=== PATIENT | male | born 1940 | race Caucasian/White ===

== ENCOUNTER 2019-10-28 12:45 | Outpatient (RCR) | payer OTHER, SELFPAY ==
--- NOTE | 2019-10-07 16:28 | PT.OIE ---
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) Visit Care Team Role Provider Type Joel Gonzalez MD Family Provider Non-Staff Primary Care Provider Specialty: Family Practice Address: [address] [place] [address], [id number] Email: Rios Stein PA-C Attending Provider Non-Staff Referring Provider Specialty: Medical Address: [address] [place] [address], [id number] Email: Physical Therapy Initial Evaluation PT-OP-A Visit Information Start: 10/03/19 19:55 Freq: Status: Active Protocol: Document 10/07/19 14:32 LRN (Rec: 10/07/19 16:26 LRN [id number]) Out-Patient Physical Therapy Visit Information Visit Information Visit Type Initial Evaluation Visit Start Time 14:32 Visit Stop Time 15:28 Total Visit Minutes 56 Visit Number 1 Evaluation Information Evaluation Date 10/07/19 Precautions Precautions Cervical fusion C1-C3 - 10-15 yrs ago. Depression. PTSD Controlled HBP PT-OP-B Current Condition Start: 10/03/19 19:55 Freq: Status: Active Protocol: Document 10/07/19 14:32 LRN (Rec: 10/07/19 16:26 LRN [id number]) Current Condition History of Current Condition Onset Date 3 weeks ago Current Complaints Tingling into R shoulder/arm, mostly in hand, intermittent, pain R head/neck History of Current Condition Urgent care 3 weeks, due to increasing pain in R neck/head and pt was concerned something was wrong. A few days afterwards went again to urgent care due to ongoing R shoulder/neck pain and got new medications that proved to be helpful. States he uses 2 codene or Meloxicam daily. States X- rays taken in [place] recently showed cushion has worn out and C3-C4 were grinding on each other; therefore referred to physical therapy. He states Dr. Gonzalez insisted on PT before doing anything else. Prior Treatments and Tests X-rays Urgent care [facility]. Pt states it showed grinding of C3-C4. Has used ice to neck with moderate results. Developmental History Developmental History 10-15 yrs ago had neck surgery in [place], because had trouble using the R hand. 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 Treatment Goals Patient/Caregiver Goals Has not had good results with PT in the past. Pt goal is for PT to find a way to alleviate the pain enough to get off medications, improve sleeping, return to heavy yardwork with pain only once in awhile (mowing lawn, cutting and hauling brush & cutting wood), vacuum without pain. 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 Baseline Function- Other Able to sleep with use of SEROquel (100 mg QUEtiapine) Current Functional Impairments (Reported) Functional Limitations- ADL's Difficulty sitting and concentrating. Rolling in bed causes electrical shocks down R arm and neck without medications to manage the pain. Functional Limitations- Mobility/Gait Pt reports serious balance problem. Functional Limitations- Recreation/ Not able to do yardwork. 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-C Subjective Start: 10/03/19 19:55 Freq: Status: Active Protocol: Document 10/07/19 14:32 LRN (Rec: 10/07/19 16:26 LRN [id number]) Patient Questionnaires Neck Disability Index NDI Score 20 Neck Disability Index Impairment 40 to 59% Impaired (Score 20- 29) Quick Dash- Upper Extremity Quick Dash UE Score 36.36 Quick Dash UE Impairment 20 to 39% Impaired (Score 20- 39) OP-PT Pain Assessment Location 8 Pain Location Details R side of neck Intensity 4 Scale Used Numeric (0 - 10) Description Aching,Dull,Sharp Frequency Constant Pain Aggravating Factors Changing Position Pain Alleviating Factors Cold Other Pain Alleviating Factors Medication Patient Stated Pain Goal Stop narcotics Comments Pain Comments Pain ranges 3-8/10. Currently pain is 4/10. PT-OP-H Neuro Start: 10/03/19 19:55 Freq: Status: Active Protocol: Document 10/07/19 14:32 LRN (Rec: 10/07/19 16:26 LRN [id number]) Sensation Evaluation Comments Summary Comments Sensation is normal to soft touch except in the R hand index finger of entirety. Pt had not complaints of tingling pain today on initial evaluation. Deep Tendon Reflex & Clonus Assessment Deep Tendon Reflex Bilateral Tricep Deep Tendon Reflex 1+ Diminished Bilateral Brachioradialis Deep Tendon Reflex 1+ Diminished Bilateral Bicep Deep Tendon Reflex 1+ Diminished PT-OP-J Posture/Palpation/Skin Start: 10/03/19 19:55 Freq: Status: Active Protocol: Document 10/07/19 14:32 LRN (Rec: 10/07/19 16:26 LRN [id number]) Posture Evaluation Position Standing Evaluation View All positions Head/C-Spine Posture Rotated Left,Side Bent Left, Forward Head T-Spine Posture Flattened L-Spine Posture Flattened Shoulder Posture (R) Elevated Pelvis Posture (L) Rotated Posterior,(R) Rotated Posterior PT-OP-K Range of Motion Start: 10/03/19 19:55 Freq: Status: Active Protocol: Document 10/07/19 14:32 LRN (Rec: 10/07/19 16:26 LRN [id number]) Cervical Spine Range of Motion Cervical Spine Active Degrees Testing Position Sitting Flexion 60 Extension 50 Rotation Left 45 Rotation Right 30 Lateral Flexion Left 15 Lateral Flexion Right 15 ROM Limitations Soft Tissue Tightness,Pain Shoulder Goniometric Range of Motion Shoulder Right Active Testing Position Supine Flexion 145 Abduction 155 Left Active Testing Position Supine Flexion 145 Abduction 142 PT-OP-L Special Tests Start: 10/03/19 19:55 Freq: Status: Active Protocol: Document 10/07/19 14:32 LRN (Rec: 10/07/19 16:26 LRN [id number]) Special Tests Cervical Spine Special Tests Vertebral Artery Test Results negative bilaterally Traction Test Results negative Foraminal Compression Test Results negative PT-OP-M Strength Start: 10/03/19 19:55 Freq: Status: Active Protocol: Document 10/07/19 14:32 LRN (Rec: 10/07/19 16:26 LRN [id number]) Cervical Spine Strength Cervical Spine Manual Muscle Testing Testing Position Sitting Reason Not Measured WFL Comments No increase in pain. Shoulder Strength Shoulder Manual Muscle Testing Right Reason Not Measured WFL Comments No R shoulder/neck pain complaints. Left Reason Not Measured WFL PT-OP-Q Treatments Start: 10/03/19 19:55 Freq: Status: Active Protocol: Document 10/07/19 14:32 LRN (Rec: 10/07/19 16:26 LRN [id number]) Therapeutic Exercises Supine Exercises C. Rotation Supine Exercise Name Passive and active Cervical rotation. Side bilateral Reps/Minutes 4 Self-Care/Home Management Treatment Education Patient Education Home Exercise Program,Posture Other Education Educated pt in proper sitting posture and discussed proper alignment. Physical cuing training was needed and verbal cuing needed during exercises . Activities Self-Care/Home Management Activities I/S and educated pt in self care ex of active C. rotation with awareness of proper sitting posture and proper head movement. I/S pt in proper posturing while reading to avoid slouching and head down posturing. PT-OP-T Assessment and Plan Start: 10/03/19 19:55 Freq: Status: Active Protocol: Document 10/07/19 14:32 LRN (Rec: 10/07/19 16:26 LRN [id number]) Physical Therapy Assessment Rehab Potential Rehabilitation Potential Good Evaluation Complexity Number of Personal Factors/Comorbidities 1-2 Number of Body Systems Impaired 4 or More Clinical Presentation at Evaluation Evolving Impairments Impairments Activity Tolerance,Pain, Posture,ROM,Soft Tissue Mobility Goals Pain Impairment Pain rated 3-8/10 in R neck/ head limiting function Short Term Goal (STG) Decrease pain with pt able to tolerate rolling in bed without interrupting sleep. STG Duration 11/04/19 Global Mobility Specialist Goal (LTG) Decrease pain to a tolerable level such that the pt will not need medications to manage his R neck/shoulder pain pain . LTG Duration 12/06/19 QuickDASH Impairment QuickDASH = 36.36 (29-39% impaired, score 20-39) Short Term Goal (STG) Pt will be able to vacuum without an increase in sharp R head/neck pain. Longterm Goal (LTG) Improve UE function per LEFS score of 19 or less (1-19% impairment). LTG Duration 12/06/19 NDI Impairment Decreased neck function per NDI 20 (40-59% impaired, score 20-29) Short Term Goal (STG) Decrease NDI to 15 or less. STG Duration 11/04/19 Global Mobility Specialist Goal (LTG) Decrease NDI to 9 or less. LTG Duration 12/06/19 HEP Impairment Pt lacks appropriate self senior living exercises. Global Mobility Specialist Goal (LTG) Pt will be independent with a self care HEP., LTG Duration 12/06/19 Assessment Summary Assessment Pt presents with notable postural deviations and mechanical dysfunction of the cervical spine. He doesn't demonstrate neurological involvement of the cervical spine at this time. He appears to have poor postural awareness of his head on his shoulders and should benefit from physical therapy for postural training; cervical and shoulder ROM, and strengthening of postural muscles. Physical Therapy Plan Frequency and Duration Frequency of Treatment 2x/Week Plan of Care Start Date 10/07/19 Plan of Care End Date 12/06/19 Therapeutic Interventions Therapeutic Interventions Home Exercise Program,Joint Mobilizations,Manual Therapy, Neuromuscular Re-education, Patient/Caregiver Education, Self-Care/Home Management,Soft Tissue Mobilization,Taping, Therapeutic Exercises Modalities Cold Pack/Ice Massage,Hot Packs Next Visit Focus/Plan Next Note Type Treatment Note
--- NOTE | 2019-10-07 16:39 | PT.OPPOC ---
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) Visit Care Team Role Provider Type Joel Gonzalez MD Family Provider Non-Staff Primary Care Provider Specialty: Family Practice Address: [address] [place] [address], [phone] Email: Rios Stein PA-C Attending Provider Non-Staff Referring Provider Specialty: Medical Address: [address] [place] [address], [id number] Email: Plan Of Care PT-OP-T Assessment and Plan Start: 10/03/19 19:55 Freq: Status: Active Protocol: Document 10/07/19 14:32 LRN (Rec: 10/07/19 16:26 LRN [id number]) Physical Therapy Assessment Rehab Potential Rehabilitation Potential Good Evaluation Complexity Number of Personal Factors/Comorbidities 1-2 Number of Body Systems Impaired 4 or More Clinical Presentation at Evaluation Evolving Impairments Impairments Activity Tolerance,Pain, Posture,ROM,Soft Tissue Mobility Goals Pain Impairment Pain rated 3-8/10 in R neck/ head limiting function Short Term Goal (STG) Decrease pain with pt able to tolerate rolling in bed without interrupting sleep. STG Duration 11/04/19 Nursing Home Goal (LTG) Decrease pain to a tolerable level such that the pt will not need medications to manage his R neck/shoulder pain pain . LTG Duration 12/06/19 QuickDASH Impairment QuickDASH = 36.36 (29-39% impaired, score 20-39) Short Term Goal (STG) Pt will be able to vacuum without an increase in sharp R head/neck pain. Pulmonary Function Technologist Goal (LTG) Improve UE function per LEFS score of 19 or less (1-19% impairment). LTG Duration 12/06/19 NDI Impairment Decreased neck function per NDI 20 (40-59% impaired, score 20-29) Short Term Goal (STG) Decrease NDI to 15 or less. STG Duration 11/04/19 Nursing Home Goal (LTG) Decrease NDI to 9 or less. LTG Duration 12/06/19 HEP Impairment Pt lacks appropriate self assisted exercises. Nursing Home Goal (LTG) Pt will be independent with a self care HEP., LTG Duration 12/06/19 Assessment Summary Assessment Pt presents with notable postural deviations and mechanical dysfunction of the cervical spine. He doesn't demonstrate neurological involvement of the cervical spine at this time. He appears to have poor postural awareness of his head on his shoulders and should benefit from physical therapy for postural training; cervical and shoulder ROM, and strengthening of postural muscles. Physical Therapy Plan Frequency and Duration Frequency of Treatment 2x/Week Plan of Care Start Date 10/07/19 Plan of Care End Date 12/06/19 Therapeutic Interventions Therapeutic Interventions Home Exercise Program,Joint Mobilizations,Manual Therapy, Neuromuscular Re-education, Patient/Caregiver Education, Self-Care/Home Management,Soft Tissue Mobilization,Taping, Therapeutic Exercises Modalities Cold Pack/Ice Massage,Hot Packs Next Visit Focus/Plan Next Note Type Treatment Note Plan of Care Dates Plan of Care Start Date 10/07/19 Plan of Care End Date 12/06/19 Electronically Signed by: Ely Marin, PT 10/07/19 5940 Please Sign and Return: I have reviewed this Plan of Care and certify that the skilled therapy services above are required to meet the patient?s needs. Physician Signature Date Printed Name and Credentials Clinical Instructor Signature Printed Name and Credentials
--- NOTE | 2019-10-08 16:34 | PT.OTN ---
Current Diagnoses Spondylosis without myelopathy or radiculopathy, cervical region (10/08/19) Physical Therapy Treatment Note PT-OP-A Visit Information Start: 10/03/19 19:55 Freq: Status: Active Protocol: Document 10/08/19 15:09 LRN (Rec: 10/08/19 16:27 LRN [id number]) Out-Patient Physical Therapy Visit Information Visit Information Visit Type Treatment Note Visit Start Time 15:09 Visit Stop Time 15:55 Total Visit Minutes 46 Visit Number 2 Evaluation Information Evaluation Date 10/07/19 Precautions Precautions Cervical fusion C1-C3 - 10-15 yrs ago. Depression. PTSD Controlled HBP PT-OP-B Current Condition Start: 10/03/19 19:55 Freq: Status: Active Protocol: Document 10/07/19 14:32 LRN (Rec: 10/07/19 16:26 LRN [id number]) Current Condition History of Current Condition Onset Date 3 weeks ago Current Complaints Tingling into R shoulder/arm, mostly in hand, intermittent, pain R head/neck History of Current Condition Urgent care 3 weeks, due to increasing pain in R neck/head and pt was concerned something was wrong. A few days afterwards went again to urgent care due to ongoing R shoulder/neck pain and got new medications that proved to be helpful. States he uses 2 codene or Meloxicam daily. States X- rays taken in [place] recently showed cushion has worn out and C3-C4 were grinding on each other; therefore referred to physical therapy. He states Dr. Gonzalez insisted on PT before doing anything else. Prior Treatments and Tests X-rays Urgent care [facility]. Pt states it showed grinding of C3-C4. Has used ice to neck with moderate results. Developmental History Developmental History 10-15 yrs ago had neck surgery in [place], because had trouble using the R hand. 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 Treatment Goals Patient/Caregiver Goals Has not had good results with PT in the past. Pt goal is for PT to find a way to alleviate the pain enough to get off medications, improve sleeping, return to heavy yardwork with pain only once in awhile (mowing lawn, cutting and hauling brush & cutting wood), vacuum without pain. 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 Baseline Function- Other Able to sleep with use of SEROquel (100 mg QUEtiapine) Current Functional Impairments (Reported) Functional Limitations- ADL's Difficulty sitting and concentrating. Rolling in bed causes electrical shocks down R arm and neck without medications to manage the pain. Functional Limitations- Mobility/Gait Pt reports serious balance problem. Functional Limitations- Recreation/ Not able to do yardwork. 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 Pt seen leaning over knees to read at start of therapy, pt reports he has been reading like that. PT-OP-H Neuro Start: 10/03/19 19:55 Freq: Status: Active Protocol: Document 10/07/19 14:32 LRN (Rec: 10/07/19 16:26 LRN [id number]) Sensation Evaluation Comments Summary Comments Sensation is normal to soft touch except in the R hand index finger of entirety. Pt had not complaints of tingling pain today on initial evaluation. Deep Tendon Reflex & Clonus Assessment Deep Tendon Reflex Bilateral Tricep Deep Tendon Reflex 1+ Diminished Bilateral Brachioradialis Deep Tendon Reflex 1+ Diminished Bilateral Bicep Deep Tendon Reflex 1+ Diminished PT-OP-J Posture/Palpation/Skin Start: 10/03/19 19:55 Freq: Status: Active Protocol: Document 10/07/19 14:32 LRN (Rec: 10/07/19 16:26 LRN [id number]) Posture Evaluation Position Standing Evaluation View All positions Head/C-Spine Posture Rotated Left,Side Bent Left, Forward Head T-Spine Posture Flattened L-Spine Posture Flattened Shoulder Posture (R) Elevated Pelvis Posture (L) Rotated Posterior,(R) Rotated Posterior PT-OP-K Range of Motion Start: 10/03/19 19:55 Freq: Status: Active Protocol: Document 10/08/19 15:09 LRN (Rec: 10/08/19 16:27 LRN [id number]) Shoulder Goniometric Range of Motion Shoulder Right Active Testing Position Supine External Rotation at 90 degrees 90 Abduction Internal Rotation 60 Left Active Testing Position Supine External Rotation at 90 degrees 90 Abduction Internal Rotation 70 PT-OP-L Special Tests Start: 10/03/19 19:55 Freq: Status: Active Protocol: Document 10/07/19 14:32 LRN (Rec: 10/07/19 16:26 LRN [id number]) Special Tests Cervical Spine Special Tests Vertebral Artery Test Results negative bilaterally Traction Test Results negative Foraminal Compression Test Results negative PT-OP-M Strength Start: 10/03/19 19:55 Freq: Status: Active Protocol: Document 10/07/19 14:32 LRN (Rec: 10/07/19 16:26 LRN [id number]) Cervical Spine Strength Cervical Spine Manual Muscle Testing Testing Position Sitting Reason Not Measured WFL Comments No increase in pain. Shoulder Strength Shoulder Manual Muscle Testing Right Reason Not Measured WFL Comments No R shoulder/neck pain complaints. Left Reason Not Measured WFL PT-OP-Q Treatments Start: 10/03/19 19:55 Freq: Status: Active Protocol: Document 10/08/19 15:09 LRN (Rec: 10/08/19 16:27 LRN [id number]) Therapeutic Exercises Supine Exercises Shoulder ROM Supine Exercise Name [place] Shoulder PROM flex, ER/IR Reps/Minutes 8' Comments ROM taken for ER/IR C. SB stretch Supine Exercise Name Passive stretch Side bilateral Reps/Minutes 8'' Deep C. Neck Flexor strengthening Supine Exercise Name Neck Elongation training Reps/Minutes 5' C. Rotation Supine Exercise Name Active C. Rotation stretching Side bilateral Reps/Minutes 8' Comments Extra time to train pt to do one side at time, not follows direction Standing Exercises L/S shift to left Standing Exercise Name L wall lean to pelvic shift left and correct L/S L tilt Side left Reps/Minutes 3' Postural awareness training Standing Exercise Name Standing with neck elongation Reps/Minutes 3' Manual Therapy Treatment Soft Tissue Mobilization C[place]orro UT Body Location [place] UT Mobilization Type Myofascial Release Intensity/Depth Moderate Body Position Supine Self-Care/Home Management Treatment Education Patient Education Home Exercise Program,Posture Other Education Discussed at length proper posturing and pt responsibility to become aware and make changes. Training to improve awareness of proper posture through verbal, physical and visual cuing ( demonstrating pt posture). Discussed effects of posture and body mechanics while carrying a 50# backpack and recommended the pt lessen the load. Activities Self-Care/Home Management Activities I/S pt in correction for a L lateral trunk shift with L wall lean for a R pelvic shift . I/S pt in active C. rotation stretch. I/S pt in improving posture of head on shoulders and recommended use of walking sticks for balance to avoid having head and hip flex posturing. I/S pt in neck elongation ex. PT-OP-R Modalities Start: 10/03/19 19:55 Freq: Status: Active Protocol: Document 10/08/19 15:09 LRN (Rec: 10/08/19 16:27 LRN [id number]) Hot Pack/Cold Pack Treatment Hot Pack Location Neck & back Patient Position Supine Treatment Duration (minutes) 10 Comments MH during neck exercises PT-OP-T Assessment and Plan Start: 10/03/19 19:55 Freq: Status: Active Protocol: Document 10/08/19 15:09 LRN (Rec: 10/08/19 16:27 LRN [id number]) Physical Therapy Assessment Goals Pain Impairment Pain rated 3-8/10 in R neck/ head limiting function Short Term Goal (STG) Decrease pain with pt able to tolerate rolling in bed without interrupting sleep. STG Duration 11/04/19 Acid Filler Goal (LTG) Decrease pain to a tolerable level such that the pt will not need medications to manage his R neck/shoulder pain pain . LTG Duration 12/06/19 QuickDASH Impairment QuickDASH = 36.36 (29-39% impaired, score 20-39) Short Term Goal (STG) Pt will be able to vacuum without an increase in sharp R head/neck pain. Fdc Goal (LTG) Improve UE function per LEFS score of 19 or less (1-19% impairment). LTG Duration 12/06/19 NDI Impairment Decreased neck function per NDI 20 (40-59% impaired, score 20-29) Short Term Goal (STG) Decrease NDI to 15 or less. STG Duration 11/04/19 Fdc Goal (LTG) Decrease NDI to 9 or less. LTG Duration 12/06/19 HEP Impairment Pt lacks appropriate self senior living exercises. Acid Filler Goal (LTG) Pt will be independent with a self care HEP., LTG Duration 12/06/19 Progress Towards Goals Progress Comments No pain after therapy noted. Assessment Summary Assessment Postural deviations @ head and LB, and mechanical dysfunction of the cervical spine. Possible deviation of upper T/S. Pt has notable sunken R thoracic region in supine. Poor body awareness. Physical Therapy Plan Frequency and Duration Frequency of Treatment 2x/Week Plan of Care Start Date 10/07/19 Plan of Care End Date 12/06/19 Next Visit Focus/Plan Next Note Type Treatment Note Next Visit Plan MH neck with ROM neck. Check supine shoulder flex/AB AROM, continue postural exercises, strengthen neck and scap stabilizers, manual traction if helpful and STM as needed. Correct R lateral trunk shift . Upper T/S manual therapy & assess R sunken chest.
--- NOTE | 2019-10-15 16:07 | PT.OTN ---
Current Diagnoses Spondylosis without myelopathy or radiculopathy, cervical region (10/15/19) Physical Therapy Treatment Note PT-OP-A Visit Information Start: 10/03/19 19:55 Freq: Status: Active Protocol: Document 10/15/19 15:05 LRN (Rec: 10/15/19 16:06 LRN [id number]) Out-Patient Physical Therapy Visit Information Visit Information Visit Type Treatment Note Visit Start Time 15:05 Visit Stop Time 15:55 Total Visit Minutes 50 Evaluation Information Evaluation Date 10/07/19 Precautions Precautions Cervical fusion C1-C3 - 10-15 yrs ago. Depression. PTSD Controlled HBP PT-OP-B Current Condition Start: 10/03/19 19:55 Freq: Status: Active Protocol: Document 10/07/19 14:32 LRN (Rec: 10/07/19 16:26 LRN [id number]) Current Condition History of Current Condition Onset Date 3 weeks ago Current Complaints Tingling into R shoulder/arm, mostly in hand, intermittent, pain R head/neck History of Current Condition Urgent care 3 weeks, due to increasing pain in R neck/head and pt was concerned something was wrong. A few days afterwards went again to urgent care due to ongoing R shoulder/neck pain and got new medications that proved to be helpful. States he uses 2 codene or Meloxicam daily. States X- rays taken in [place] recently showed cushion has worn out and C3-C4 were grinding on each other; therefore referred to physical therapy. He states Dr. Gonzalez insisted on PT before doing anything else. Prior Treatments and Tests X-rays Urgent care [facility]. Pt states it showed grinding of C3-C4. Has used ice to neck with moderate results. Developmental History Developmental History 10-15 yrs ago had neck surgery in [place], because had trouble using the R hand. 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 Treatment Goals Patient/Caregiver Goals Has not had good results with PT in the past. Pt goal is for PT to find a way to alleviate the pain enough to get off medications, improve sleeping, return to heavy yardwork with pain only once in awhile (mowing lawn, cutting and hauling brush & cutting wood), vacuum without pain. 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 Baseline Function- Other Able to sleep with use of SEROquel (100 mg QUEtiapine) Current Functional Impairments (Reported) Functional Limitations- ADL's Difficulty sitting and concentrating. Rolling in bed causes electrical shocks down R arm and neck without medications to manage the pain. Functional Limitations- Mobility/Gait Pt reports serious balance problem. Functional Limitations- Recreation/ Not able to do yardwork. 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 States he thought he was doing better with holding the book up (speaking to my comment that his head was down ). Back is okay, was out working today. Is now more aware of limitations. PT-OP-H Neuro Start: 10/03/19 19:55 Freq: Status: Active Protocol: Document 10/07/19 14:32 LRN (Rec: 10/07/19 16:26 LRN [id number]) Sensation Evaluation Comments Summary Comments Sensation is normal to soft touch except in the R hand index finger of entirety. Pt had not complaints of tingling pain today on initial evaluation. Deep Tendon Reflex & Clonus Assessment Deep Tendon Reflex Bilateral Tricep Deep Tendon Reflex 1+ Diminished Bilateral Brachioradialis Deep Tendon Reflex 1+ Diminished Bilateral Bicep Deep Tendon Reflex 1+ Diminished PT-OP-J Posture/Palpation/Skin Start: 10/03/19 19:55 Freq: Status: Active Protocol: Document 10/07/19 14:32 LRN (Rec: 10/07/19 16:26 LRN [id number]) Posture Evaluation Position Standing Evaluation View All positions Head/C-Spine Posture Rotated Left,Side Bent Left, Forward Head T-Spine Posture Flattened L-Spine Posture Flattened Shoulder Posture (R) Elevated Pelvis Posture (L) Rotated Posterior,(R) Rotated Posterior PT-OP-K Range of Motion Start: 10/03/19 19:55 Freq: Status: Active Protocol: Document 10/08/19 15:09 LRN (Rec: 10/08/19 16:27 LRN [id number]) Shoulder Goniometric Range of Motion Shoulder Right Active Testing Position Supine External Rotation at 90 degrees 90 Abduction Internal Rotation 60 Left Active Testing Position Supine External Rotation at 90 degrees 90 Abduction Internal Rotation 70 PT-OP-L Special Tests Start: 10/03/19 19:55 Freq: Status: Active Protocol: Document 10/07/19 14:32 LRN (Rec: 10/07/19 16:26 LRN [id number]) Special Tests Cervical Spine Special Tests Vertebral Artery Test Results negative bilaterally Traction Test Results negative Foraminal Compression Test Results negative PT-OP-M Strength Start: 10/03/19 19:55 Freq: Status: Active Protocol: Document 10/07/19 14:32 LRN (Rec: 10/07/19 16:26 LRN [id number]) Cervical Spine Strength Cervical Spine Manual Muscle Testing Testing Position Sitting Reason Not Measured WFL Comments No increase in pain. Shoulder Strength Shoulder Manual Muscle Testing Right Reason Not Measured WFL Comments No R shoulder/neck pain complaints. Left Reason Not Measured WFL PT-OP-Q Treatments Start: 10/03/19 19:55 Freq: Status: Active Protocol: Document 10/15/19 15:05 LRN (Rec: 10/15/19 16:06 LRN [id number]) Therapeutic Exercises Supine Exercises Shoulder flex Supine Exercise Name Shoulder flex w/cane Side bilateral Chin tuck Supine Exercise Name Suboccipital stretch Side bilateral Reps/Minutes 10 Hold x 6 Comments Limited stretch due to difficulty onset with swallowing. Shoulder ROM Supine Exercise Name Cachorro Shoulder PROM flex, ER/IR Reps/Minutes 8' Comments ROM taken for ER/IR C. SB stretch Supine Exercise Name Passive stretch Side bilateral Reps/Minutes 8'' Deep C. Neck Flexor strengthening Supine Exercise Name Neck Elongation Reps/Minutes 5' C. Rotation Supine Exercise Name Active & self assisted C. Rotation stretching Side bilateral Reps/Minutes 8' Comments Xtra time to determine max self assist and awareness of limits of motion. Manual Therapy Treatment Soft Tissue Mobilization Cachorro UT Body Location R UT, cervical paraspinals. Mobilization Type Myofascial Release Intensity/Depth Moderate Body Position Supine Self-Care/Home Management Treatment Education Patient Education Home Exercise Program,Posture Other Education Postural awareness training in sitting/standing. Further review and training of proper posturing with different functional activities, requiring v. and phys cuing. Activities Self-Care/Home Management Activities Issued & reviewed HEP: Cane ex for shoulder flex, ER/IR. PT-OP-R Modalities Start: 10/03/19 19:55 Freq: Status: Active Protocol: Document 10/15/19 15:05 LRN (Rec: 10/15/19 16:06 LRN [id number]) Hot Pack/Cold Pack Treatment Hot Pack Location Neck & back Patient Position Supine Treatment Duration (minutes) 10 Comments MH during neck exercises PT-OP-T Assessment and Plan Start: 10/03/19 19:55 Freq: Status: Active Protocol: Document 10/15/19 15:05 LRN (Rec: 10/15/19 16:06 LRN [id number]) Physical Therapy Assessment Goals Pain Impairment Pain rated 3-8/10 in R neck/ head limiting function Short Term Goal (STG) Decrease pain with pt able to tolerate rolling in bed without interrupting sleep. (10/15/19: Pt reports usual pain of 6/10). STG Duration 11/04/19 Wing Mailer Machine Operator Goal (LTG) Decrease pain to a tolerable level such that the pt will not need medications to manage his R neck/shoulder pain pain . LTG Duration 12/06/19 QuickDASH Impairment QuickDASH = 36.36 (29-39% impaired, score 20-39) Short Term Goal (STG) Pt will be able to vacuum without an increase in sharp R head/neck pain. Wing Mailer Machine Operator Goal (LTG) Improve UE function per LEFS score of 19 or less (1-19% impairment). LTG Duration 12/06/19 NDI Impairment Decreased neck function per NDI 20 (40-59% impaired, score 20-29) Short Term Goal (STG) Decrease NDI to 15 or less. STG Duration 11/04/19 Wing Mailer Machine Operator Goal (LTG) Decrease NDI to 9 or less. LTG Duration 12/06/19 HEP Impairment Pt lacks appropriate self chcf exercises. Care Home Goal (LTG) Pt will be independent with a self care HEP., LTG Duration 12/06/19 (10/15/19: Progressing) Progress Towards Goals Progress Comments Pt able to walk out of therapy with upright posture and mild flexion at hips. Pt noting improved ability to write and use his UE's. Assessment Summary Assessment Pt is becoming more aware of his posturing after training, but demonstrates habitual poor posturing. No change in pain with manual cervical traction . He exited therapy room with good posture without v. or phys cuing. Physical Therapy Plan Frequency and Duration Frequency of Treatment 2x/Week Plan of Care Start Date 10/07/19 Plan of Care End Date 12/06/19 Next Visit Focus/Plan Next Note Type Treatment Note Next Visit Plan MH neck with ROM neck. Remeasure supine shoulder flex /AB AROM and issue HEP of AB stretching, continue postural strengthening exercises, strengthen neck and scap stabilizers, STM as needed. Correct R lateral trunk shift. Upper T/S manual therapy & assess R sunken chest.
--- NOTE | 2019-10-22 16:00 | PT.OTN ---
Current Diagnoses Spondylosis without myelopathy or radiculopathy, cervical region (10/22/19) Physical Therapy Treatment Note PT-OP-A Visit Information Start: 10/03/19 19:55 Freq: Status: Active Protocol: Document 10/22/19 14:49 LRN (Rec: 10/22/19 15:59 LRN [id number]) Out-Patient Physical Therapy Visit Information Visit Information Visit Type Treatment Note Visit Start Time 14:49 Visit Stop Time 15:34 Total Visit Minutes 45 Visit Number 4 Evaluation Information Evaluation Date 10/07/19 Precautions Precautions Cervical fusion C1-C3 - 10-15 yrs ago. Depression. PTSD Controlled HBP PT-OP-B Current Condition Start: 10/03/19 19:55 Freq: Status: Active Protocol: Document 10/07/19 14:32 LRN (Rec: 10/07/19 16:26 LRN [id number]) Current Condition History of Current Condition Onset Date 3 weeks ago Current Complaints Tingling into R shoulder/arm, mostly in hand, intermittent, pain R head/neck History of Current Condition Urgent care 3 weeks, due to increasing pain in R neck/head and pt was concerned something was wrong. A few days afterwards went again to urgent care due to ongoing R shoulder/neck pain and got new medications that proved to be helpful. States he uses 2 codene or Meloxicam daily. States X- rays taken in [place] recently showed cushion has worn out and C3-C4 were grinding on each other; therefore referred to physical therapy. He states Dr. Gonzalez insisted on PT before doing anything else. Prior Treatments and Tests X-rays Urgent care [facility]. Pt states it showed grinding of C3-C4. Has used ice to neck with moderate results. Developmental History Developmental History 10-15 yrs ago had neck surgery in [place], because had trouble using the R hand. 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 Treatment Goals Patient/Caregiver Goals Has not had good results with PT in the past. Pt goal is for PT to find a way to alleviate the pain enough to get off medications, improve sleeping, return to heavy yardwork with pain only once in awhile (mowing lawn, cutting and hauling brush & cutting wood), vacuum without pain. 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 Baseline Function- Other Able to sleep with use of SEROquel (100 mg QUEtiapine) Current Functional Impairments (Reported) Functional Limitations- ADL's Difficulty sitting and concentrating. Rolling in bed causes electrical shocks down R arm and neck without medications to manage the pain. Functional Limitations- Mobility/Gait Pt reports serious balance problem. Functional Limitations- Recreation/ Not able to do yardwork. 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 Pain is not all the time 6/10. Pain when working at the desk but not while walking out in the [place]. States after walking 5' indoors he has back and neck pain. PT-OP-H Neuro Start: 10/03/19 19:55 Freq: Status: Active Protocol: Document 10/07/19 14:32 LRN (Rec: 10/07/19 16:26 LRN [id number]) Sensation Evaluation Comments Summary Comments Sensation is normal to soft touch except in the R hand index finger of entirety. Pt had not complaints of tingling pain today on initial evaluation. Deep Tendon Reflex & Clonus Assessment Deep Tendon Reflex Bilateral Tricep Deep Tendon Reflex 1+ Diminished Bilateral Brachioradialis Deep Tendon Reflex 1+ Diminished Bilateral Bicep Deep Tendon Reflex 1+ Diminished PT-OP-J Posture/Palpation/Skin Start: 10/03/19 19:55 Freq: Status: Active Protocol: Document 10/07/19 14:32 LRN (Rec: 10/07/19 16:26 LRN [id number]) Posture Evaluation Position Standing Evaluation View All positions Head/C-Spine Posture Rotated Left,Side Bent Left, Forward Head T-Spine Posture Flattened L-Spine Posture Flattened Shoulder Posture (R) Elevated Pelvis Posture (L) Rotated Posterior,(R) Rotated Posterior PT-OP-K Range of Motion Start: 10/03/19 19:55 Freq: Status: Active Protocol: Document 10/22/19 14:49 LRN (Rec: 10/22/19 15:59 LRN [id number]) Shoulder Goniometric Range of Motion Shoulder Right Active Testing Position Supine Flexion 165 Extension 50 External Rotation at 90 degrees 90 Abduction Internal Rotation 60 Left Active Testing Position Supine Flexion 165 Extension 50 External Rotation at 90 degrees 90 Abduction Internal Rotation 70 PT-OP-L Special Tests Start: 10/03/19 19:55 Freq: Status: Active Protocol: Document 10/07/19 14:32 LRN (Rec: 10/07/19 16:26 LRN [id number]) Special Tests Cervical Spine Special Tests Vertebral Artery Test Results negative bilaterally Traction Test Results negative Foraminal Compression Test Results negative PT-OP-M Strength Start: 10/03/19 19:55 Freq: Status: Active Protocol: Document 10/07/19 14:32 LRN (Rec: 10/07/19 16:26 LRN [id number]) Cervical Spine Strength Cervical Spine Manual Muscle Testing Testing Position Sitting Reason Not Measured WFL Comments No increase in pain. Shoulder Strength Shoulder Manual Muscle Testing Right Reason Not Measured WFL Comments No R shoulder/neck pain complaints. Left Reason Not Measured WFL PT-OP-Q Treatments Start: 10/03/19 19:55 Freq: Status: Active Protocol: Document 10/22/19 14:49 LRN (Rec: 10/22/19 15:59 LRN [id number]) Cardio Equipment Treadmill Duration (Minutes) 6 Speed 1 Incline 0 Therapeutic Exercises Supine Exercises Shoulder AB w/wand Supine Exercise Name Assist Shoulder AB ROM Side bilateral Reps/Minutes 10x each Bridging Supine Exercise Name Bridging Reps/Minutes 10 x 3 Shoulder flex Supine Exercise Name Shoulder flex w/cane Side bilateral Shoulder ROM Supine Exercise Name Cacohrro Shoulder PROM flex, AB Reps/Minutes 8' Comments ROM taken for flex Standing Exercises Postural shoulder ext Standing Exercise Name Cachorro Shoulder Ext w/cane Equipment Used Pt's dowel stick Reps/Minutes 10x Comments Cuing for chest lift and upright posturing Ankle PF Standing Exercise Name Ankle PF Side bilateral Reps/Minutes 10x 3 (between bouts of ankle DF) Comments Cuing for upright posturing Ankle DF Standing Exercise Name Indep ankle DF: neutral, EV, IV Side bilateral Reps/Minutes 30 x each Comments Cuing for upright posturing Ankle DF stretch Standing Exercise Name Stretch on ANYI 1' f/b active DF Side bilateral Reps/Minutes 3' Comments Cuing for upright posturing Chest press Standing Exercise Name Chest press Side bilateral Equipment Used L2 TB Reps/Minutes 30 Comments Cuing for upright posturing Row Standing Exercise Name Row Resistance Arms straight and TB and taut to start Equipment Used L2 TB Reps/Minutes 30 Comments Cuing for upright posturing Postural awareness training Standing Exercise Name Standing with neck elongation, trunk corrction Reps/Minutes 3' Comments Pt able to hold proper posture initially but not able to maintain Manual Therapy Treatment Soft Tissue Mobilization Trunk Body Location Derotation (L rot) of R rotated trunk Mobilization Type Myofascial Release Intensity/Depth Superficial Body Position Supine Cachorro cervical paraspinals Body Location L>R cachorro cervical paraspinals Mobilization Type Strumming Body Position Supine Self-Care/Home Management Treatment Education Patient Education Home Exercise Program,Posture Other Education Further posturing with different functional activities, requiring v. and phys cuing. Activities Self-Care/Home Management Activities Issued & reviewed HEP: Wand ex for shoulder AB stretch and shoulder ext for proper posturing and chest lift. PT-OP-R Modalities Start: 10/03/19 19:55 Freq: Status: Active Protocol: Document 10/15/19 15:05 LRN (Rec: 10/15/19 16:06 LRN [id number]) Hot Pack/Cold Pack Treatment Hot Pack Location Neck & back Patient Position Supine Treatment Duration (minutes) 10 Comments MH during neck exercises PT-OP-T Assessment and Plan Start: 10/03/19 19:55 Freq: Status: Active Protocol: Document 10/22/19 14:49 LRN (Rec: 10/22/19 15:59 LRN [id number]) Physical Therapy Assessment Goals Pain Impairment Pain rated 3-8/10 in R neck/ head limiting function Short Term Goal (STG) Decrease pain with pt able to tolerate rolling in bed without interrupting sleep. (10/15/19: Pt reports usual pain of 6/10). STG Duration 11/04/19 Band Attacher Goal (LTG) Decrease pain to a tolerable level such that the pt will not need medications to manage his R neck/shoulder pain pain . LTG Duration 12/06/19 QuickDASH Impairment QuickDASH = 36.36 (29-39% impaired, score 20-39) Short Term Goal (STG) Pt will be able to vacuum without an increase in sharp R head/neck pain. Detention Goal (LTG) Improve LE function per LEFS score of 19 or less (1-19% impairment). LTG Duration 12/06/19 NDI Impairment Decreased neck function per NDI 20 (40-59% impaired, score 20-29) Short Term Goal (STG) Decrease NDI to 15 or less. STG Duration 11/04/19 Detention Goal (LTG) Decrease NDI to 9 or less. LTG Duration 12/06/19 HEP Impairment Pt lacks appropriate self retirement exercises. Band Attacher Goal (LTG) Pt will be independent with a self care HEP., LTG Duration 12/06/19 (10/15/19: Progressing) Assessment Summary Assessment Pt posture is much improved. He is able to stand upright walking but holds his arms behind his back. Pt was noted in waiting room reading with his book held high and head in good position. Less sunken chest appearance with pt's change in posture. Physical Therapy Plan Frequency and Duration Frequency of Treatment 2x/Week Plan of Care Start Date 10/07/19 Plan of Care End Date 12/06/19 Next Visit Focus/Plan Next Note Type Treatment Note Next Visit Plan Assess goal #4. MH neck with ROM neck. Continue postural strengthening exercises, strengthen neck and scap stabilizers, STM as needed. Correct R lateral trunk shift. Upper T/S manual therapy.
--- NOTE | 2019-10-25 13:05 | PT.OTN ---
Current Diagnoses Spondylosis without myelopathy or radiculopathy, cervical region (10/25/19) Physical Therapy Treatment Note PT-OP-A Visit Information Start: 10/03/19 19:55 Freq: Status: Active Protocol: Document 10/25/19 08:59 LRN (Rec: 10/25/19 09:48 LRN [id number]) Out-Patient Physical Therapy Visit Information Visit Information Visit Type Treatment Note Visit Start Time 08:59 Visit Stop Time 09:46 Total Visit Minutes 47 Visit Number 5 Evaluation Information Evaluation Date 10/07/19 Precautions Precautions Cervical fusion C1-C3 - 10-15 yrs ago. Depression. PTSD Controlled HBP PT-OP-B Current Condition Start: 10/03/19 19:55 Freq: Status: Active Protocol: Document 10/07/19 14:32 LRN (Rec: 10/07/19 16:26 LRN [id number]) Current Condition History of Current Condition Onset Date 3 weeks ago Current Complaints Tingling into R shoulder/arm, mostly in hand, intermittent, pain R head/neck History of Current Condition Urgent care 3 weeks, due to increasing pain in R neck/head and pt was concerned something was wrong. A few days afterwards went again to urgent care due to ongoing R shoulder/neck pain and got new medications that proved to be helpful. States he uses 2 codene or Meloxicam daily. States X- rays taken in [place] recently showed cushion has worn out and C3-C4 were grinding on each other; therefore referred to physical therapy. He states Dr. Gonzalez insisted on PT before doing anything else. Prior Treatments and Tests X-rays Urgent care [facility]. Pt states it showed grinding of C3-C4. Has used ice to neck with moderate results. Developmental History Developmental History 10-15 yrs ago had neck surgery in [place], because had trouble using the R hand. 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 Treatment Goals Patient/Caregiver Goals Has not had good results with PT in the past. Pt goal is for PT to find a way to alleviate the pain enough to get off medications, improve sleeping, return to heavy yardwork with pain only once in awhile (mowing lawn, cutting and hauling brush & cutting wood), vacuum without pain. 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 Baseline Function- Other Able to sleep with use of SEROquel (100 mg QUEtiapine) Current Functional Impairments (Reported) Functional Limitations- ADL's Difficulty sitting and concentrating. Rolling in bed causes electrical shocks down R arm and neck without medications to manage the pain. Functional Limitations- Mobility/Gait Pt reports serious balance problem. Functional Limitations- Recreation/ Not able to do yardwork. 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 States sitting in an hour long car ride that was bouncing, had low back pain that went away after awhile after getting out of the car. LBP comes and goes, neck & shoulder pain is constant. PT-OP-H Neuro Start: 10/03/19 19:55 Freq: Status: Active Protocol: Document 10/07/19 14:32 LRN (Rec: 10/07/19 16:26 LRN [id number]) Sensation Evaluation Comments Summary Comments Sensation is normal to soft touch except in the R hand index finger of entirety. Pt had not complaints of tingling pain today on initial evaluation. Deep Tendon Reflex & Clonus Assessment Deep Tendon Reflex Bilateral Tricep Deep Tendon Reflex 1+ Diminished Bilateral Brachioradialis Deep Tendon Reflex 1+ Diminished Bilateral Bicep Deep Tendon Reflex 1+ Diminished PT-OP-J Posture/Palpation/Skin Start: 10/03/19 19:55 Freq: Status: Active Protocol: Document 10/07/19 14:32 LRN (Rec: 10/07/19 16:26 LRN [id number]) Posture Evaluation Position Standing Evaluation View All positions Head/C-Spine Posture Rotated Left,Side Bent Left, Forward Head T-Spine Posture Flattened L-Spine Posture Flattened Shoulder Posture (R) Elevated Pelvis Posture (L) Rotated Posterior,(R) Rotated Posterior PT-OP-K Range of Motion Start: 10/03/19 19:55 Freq: Status: Active Protocol: Document 10/22/19 14:49 LRN (Rec: 10/22/19 15:59 LRN [id number]) Shoulder Goniometric Range of Motion Shoulder Right Active Testing Position Supine Flexion 165 Extension 50 External Rotation at 90 degrees 90 Abduction Internal Rotation 60 Left Active Testing Position Supine Flexion 165 Extension 50 External Rotation at 90 degrees 90 Abduction Internal Rotation 70 PT-OP-L Special Tests Start: 10/03/19 19:55 Freq: Status: Active Protocol: Document 10/25/19 08:59 LRN (Rec: 10/25/19 09:48 LRN [id number]) Special Tests Cervical Spine Special Tests Traction Test Results negative Comments No change in neck or R shoulder pain with traction PT-OP-M Strength Start: 10/03/19 19:55 Freq: Status: Active Protocol: Document 10/07/19 14:32 LRN (Rec: 10/07/19 16:26 LRN [id number]) Cervical Spine Strength Cervical Spine Manual Muscle Testing Testing Position Sitting Reason Not Measured WFL Comments No increase in pain. Shoulder Strength Shoulder Manual Muscle Testing Right Reason Not Measured WFL Comments No R shoulder/neck pain complaints. Left Reason Not Measured WFL PT-OP-Q Treatments Start: 10/03/19 19:55 Freq: Status: Active Protocol: Document 10/25/19 08:59 LRN (Rec: 10/25/19 09:48 LRN [id number]) Therapeutic Exercises Supine Exercises C. Rotation Supine Exercise Name C rotation stretch Side bilateral Reps/Minutes 4'' Comments Focus on R rot Sitting Exercises C. Isometric strengthening Sitting Exercise Name Isometric R SB, alternating with stretch to L UT Side right Resistance Fingertip Reps/Minutes 10 hold, f/b L UT stretch x 10 Comments Pt needed much v. cuing to limit self resistance. Standing Exercises C. Isometric Standing Exercise Name R SB isometric Side right Resistance Fingertip Reps/Minutes 10 hold x3 Comments Switched ex to sitting Shoulder rolls Standing Exercise Name Shoulder rolls Reps/Minutes 10x Comments V and phys cuing for focus on scapular retraction and depression Manual Therapy Treatment Soft Tissue Mobilization R UT Body Location R UT Mobilization Type Sustained Pressure,Trigger Point Release Body Position Hooklying Comments Manual TrP release and use of tennis ball, ending with pt being able to do self TrP treatment. Joint Mobilizations Lower Cervicals Joint C3 through C7 Direction Lateral glide and gapping Grade II Body Position Supine Reps/Duration 5' Comments Focus on L side First Rib Joint R 1st rib Direction Inferior glide Grade III Body Position Hooklying Manual Traction Cervical Details Targeting C6-C7 Body Position Hooklying Reps/Duration 3' Comments Extra time to traction various lower cervical regions. Self-Care/Home Management Treatment Education Patient Education Home Exercise Program Activities Self-Care/Home Management Activities I/S and reviewed with pt: Self TrP treat of R UT. Issued & reviewed HEP of Cervical Isometric SB and ext. PT-OP-R Modalities Start: 10/03/19 19:55 Freq: Status: Active Protocol: Document 10/15/19 15:05 LRN (Rec: 10/15/19 16:06 LRN [id number]) Hot Pack/Cold Pack Treatment Hot Pack Location Neck & back Patient Position Supine Treatment Duration (minutes) 10 Comments MH during neck exercises PT-OP-T Assessment and Plan Start: 10/03/19 19:55 Freq: Status: Active Protocol: Document 10/25/19 08:59 LRN (Rec: 10/25/19 09:48 LRN [id number]) Physical Therapy Assessment Goals Pain Impairment Pain rated 3-8/10 in R neck/ head limiting function Short Term Goal (STG) Decrease pain with pt able to tolerate rolling in bed without interrupting sleep. (10/15/19:). (10/25/19: Pt does not wake at nights but uses pain med for past month & for years PTSD med, before bed. He has usual pain of 6/10 during the day). STG Duration 11/04/19 (10/25/19: MET GOAL) Intermediate Goal (LTG) Decrease pain to a tolerable level such that the pt will not need medications to manage his R neck/shoulder pain pain . LTG Duration 12/06/19 QuickDASH Impairment QuickDASH = 36.36 (29-39% impaired, score 20-39) Short Term Goal (STG) Pt will be able to vacuum without an increase in sharp R head/neck pain. Intermediate Goal (LTG) Improve LE function per LEFS score of 19 or less (1-19% impairment). LTG Duration 12/06/19 NDI Impairment Decreased neck function per NDI 20 (40-59% impaired, score 20-29) Short Term Goal (STG) Decrease NDI to 15 or less. STG Duration 11/04/19 Intermediate Goal (LTG) Decrease NDI to 9 or less. LTG Duration 12/06/19 HEP Impairment Pt lacks appropriate self residential exercises. Assignment Manager Goal (LTG) Pt will be independent with a self care HEP., LTG Duration 12/06/19 (10/25/19: Progressing) Progress Towards Goals Progress Comments Pain of R neck and R shoulder decreased after therapy to only pain in the R neck at C2- C3 level and C3 Transverse Process. Pain STG: MET. Assessment Summary Assessment Pt ongoing R neck and shoulder pain probably due to poor posturing causing overstretch of R UT at rest ( since he sits with his head leaning to the left and rotated down). Pt is very concerned of every ache and pain in body and appears to focus on his pain. Physical Therapy Plan Frequency and Duration Frequency of Treatment 2x/Week Plan of Care Start Date 10/07/19 Plan of Care End Date 12/06/19 Next Visit Focus/Plan Next Note Type Treatment Note Next Visit Plan MH neck with ROM neck. Continue neck and scap stabilizing ex's to strengthen , postural strengthening exercises, STM as needed to R neck/back. Correct R lateral trunk shift. Upper T/S manual therapy.
--- NOTE | 2019-10-28 13:49 | PT.OTN ---
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) Physical Therapy Treatment Note PT-OP-A Visit Information Start: 10/03/19 19:55 Freq: Status: Active Protocol: Document 10/28/19 12:49 LRN (Rec: 10/28/19 13:41 LRN [id number]) Out-Patient Physical Therapy Visit Information Visit Information Visit Type Treatment Note Visit Start Time 12:49 Visit Stop Time 13:35 Total Visit Minutes 46 Visit Number 6 Evaluation Information Evaluation Date 10/07/19 Precautions Precautions Cervical fusion C1-C3 - 10-15 yrs ago. Depression. PTSD Controlled HBP PT-OP-B Current Condition Start: 10/03/19 19:55 Freq: Status: Active Protocol: Document 10/07/19 14:32 LRN (Rec: 10/07/19 16:26 LRN [id number]) Current Condition History of Current Condition Onset Date 3 weeks ago Current Complaints Tingling into R shoulder/arm, mostly in hand, intermittent, pain R head/neck History of Current Condition Urgent care 3 weeks, due to increasing pain in R neck/head and pt was concerned something was wrong. A few days afterwards went again to urgent care due to ongoing R shoulder/neck pain and got new medications that proved to be helpful. States he uses 2 codene or Meloxicam daily. States X- rays taken in [place] recently showed cushion has worn out and C3-C4 were grinding on each other; therefore referred to physical therapy. He states Dr. Gonzalez insisted on PT before doing anything else. Prior Treatments and Tests X-rays Urgent care [facility]. Pt states it showed grinding of C3-C4. Has used ice to neck with moderate results. Developmental History Developmental History 10-15 yrs ago had neck surgery in [place], because had trouble using the R hand. 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 Treatment Goals Patient/Caregiver Goals Has not had good results with PT in the past. Pt goal is for PT to find a way to alleviate the pain enough to get off medications, improve sleeping, return to heavy yardwork with pain only once in awhile (mowing lawn, cutting and hauling brush & cutting wood), vacuum without pain. 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 Baseline Function- Other Able to sleep with use of SEROquel (100 mg QUEtiapine) Current Functional Impairments (Reported) Functional Limitations- ADL's Difficulty sitting and concentrating. Rolling in bed causes electrical shocks down R arm and neck without medications to manage the pain. Functional Limitations- Mobility/Gait Pt reports serious balance problem. Functional Limitations- Recreation/ Not able to do yardwork. 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 States he did do self TrP treatements. States he stepped on a hornets nest 5 days ago and moved faster than he thought he could. PT-OP-H Neuro Start: 10/03/19 19:55 Freq: Status: Active Protocol: Document 10/07/19 14:32 LRN (Rec: 10/07/19 16:26 LRN [id number]) Sensation Evaluation Comments Summary Comments Sensation is normal to soft touch except in the R hand index finger of entirety. Pt had not complaints of tingling pain today on initial evaluation. Deep Tendon Reflex & Clonus Assessment Deep Tendon Reflex Bilateral Tricep Deep Tendon Reflex 1+ Diminished Bilateral Brachioradialis Deep Tendon Reflex 1+ Diminished Bilateral Bicep Deep Tendon Reflex 1+ Diminished PT-OP-J Posture/Palpation/Skin Start: 10/03/19 19:55 Freq: Status: Active Protocol: Document 10/07/19 14:32 LRN (Rec: 10/07/19 16:26 LRN [id number]) Posture Evaluation Position Standing Evaluation View All positions Head/C-Spine Posture Rotated Left,Side Bent Left, Forward Head T-Spine Posture Flattened L-Spine Posture Flattened Shoulder Posture (R) Elevated Pelvis Posture (L) Rotated Posterior,(R) Rotated Posterior PT-OP-K Range of Motion Start: 10/03/19 19:55 Freq: Status: Active Protocol: Document 10/22/19 14:49 LRN (Rec: 10/22/19 15:59 LRN [id number]) Shoulder Goniometric Range of Motion Shoulder Right Active Testing Position Supine Flexion 165 Extension 50 External Rotation at 90 degrees 90 Abduction Internal Rotation 60 Left Active Testing Position Supine Flexion 165 Extension 50 External Rotation at 90 degrees 90 Abduction Internal Rotation 70 PT-OP-L Special Tests Start: 10/03/19 19:55 Freq: Status: Active Protocol: Document 10/25/19 08:59 LRN (Rec: 10/25/19 09:48 LRN [id number]) Special Tests Cervical Spine Special Tests Traction Test Results negative Comments No change in neck or R shoulder pain with traction PT-OP-M Strength Start: 10/03/19 19:55 Freq: Status: Active Protocol: Document 10/07/19 14:32 LRN (Rec: 10/07/19 16:26 LRN [id number]) Cervical Spine Strength Cervical Spine Manual Muscle Testing Testing Position Sitting Reason Not Measured WFL Comments No increase in pain. Shoulder Strength Shoulder Manual Muscle Testing Right Reason Not Measured WFL Comments No R shoulder/neck pain complaints. Left Reason Not Measured WFL PT-OP-Q Treatments Start: 10/03/19 19:55 Freq: Status: Active Protocol: Document 10/28/19 12:49 LRN (Rec: 10/28/19 13:41 LRN [id number]) Cardio Equipment Upper Body Ergometer (UBE) Duration (Minutes) 6 RPM 65 Seat Position 9 Height 3 Other 4' fwd/bkwd + 1' fwd/bkwd Therapeutic Exercises Sitting Exercises C. Ext strengthening Sitting Exercise Name C. Isometrics Side bilateral Resistance Fingertips Reps/Minutes 5 hold x 5 C. Isometric strengthening Sitting Exercise Name Isometric R SB, alternating with stretch to L UT Side right Resistance Fingertip Reps/Minutes 5 hold x 5, f/b L UT 30 stretch x 10 Comments Pt needed much v. cuing to limit self resistance. Standing Exercises Scapular retraction/depression Standing Exercise Name Scapular depression/retraction Side bilateral Comments Much phys, v. & visual feedback needed. Shoulder Ext Standing Exercise Name Shoulder Ext Side bilateral Resistance 2# Reps/Minutes 2' Comments Physl cuing needed Stretch into C. Ext Standing Exercise Name Stretch to C. Flexors Side bilateral Reps/Minutes 30 x 2 C. Rot stretch Standing Exercise Name C. Rot stretch Side bilateral Reps/Minutes 30 x 2 C. SB stretch Standing Exercise Name C SB stretch Side bilateral Reps/Minutes 30 x 2 Shoulder rolls Standing Exercise Name Shoulder rolls Reps/Minutes 10x Comments V and phys cuing for focus on scapular retraction and depression Postural awareness training Standing Exercise Name Postural awareness training due to L trunk SB posturing Reps/Minutes 1' PT-OP-R Modalities Start: 10/03/19 19:55 Freq: Status: Active Protocol: Document 10/15/19 15:05 LRN (Rec: 10/15/19 16:06 LRN [id number]) Hot Pack/Cold Pack Treatment Hot Pack Location Neck & back Patient Position Supine Treatment Duration (minutes) 10 Comments MH during neck exercises PT-OP-T Assessment and Plan Start: 10/03/19 19:55 Freq: Status: Active Protocol: Document 10/28/19 12:49 LRN (Rec: 10/28/19 13:41 LRN [id number]) Physical Therapy Assessment Goals Pain Impairment Pain rated 3-8/10 in R neck/ head limiting function Short Term Goal (STG) Decrease pain with pt able to tolerate rolling in bed without interrupting sleep. (10/15/19:). (10/25/19: Pt does not wake at nights but uses pain med for past month & for years PTSD med, before bed. He has usual pain of 6/10 during the day). STG Duration 11/04/19 (10/25/19: MET GOAL) Registered Nurse Fetal Goal (LTG) Decrease pain to a tolerable level such that the pt will not need medications to manage his R neck/shoulder pain pain . LTG Duration 12/06/19 QuickDASH Impairment QuickDASH = 36.36 (29-39% impaired, score 20-39) Short Term Goal (STG) Pt will be able to vacuum without an increase in sharp R head/neck pain. Registered Nurse Fetal Goal (LTG) Improve LE function per LEFS score of 19 or less (1-19% impairment). LTG Duration 12/06/19 NDI Impairment Decreased neck function per NDI 20 (40-59% impaired, score 20-29) Short Term Goal (STG) Decrease NDI to 15 or less. STG Duration 11/04/19 Registered Nurse Fetal Goal (LTG) Decrease NDI to 9 or less. LTG Duration 12/06/19 HEP Impairment Pt lacks appropriate self alf exercises. Group Home Goal (LTG) Pt will be independent with a self care HEP., LTG Duration 12/06/19 (10/25/19: Progressing) Progress Towards Goals Progress Comments Decreased ms tone of L UT, with R tone > L. Assessment Summary Assessment No change in neck pain with use of UBE. Pt unable to perform bilateral scapular retract/depression, R side needs much phys cuing and sometimes is not able to perform. Physical Therapy Plan Frequency and Duration Frequency of Treatment 2x/Week Plan of Care Start Date 10/07/19 Plan of Care End Date 12/06/19 Next Visit Focus/Plan Next Note Type Treatment Note Next Visit Plan If needed, MH neck with ROM neck. Continue neck and scap stabilizing ex's to strengthen , trunk/neck postural strengthening exercises, correct R lateral trunk shift. Upper T/S manual therapy. STM as needed to R neck/back.
--- NOTE | 2019-12-31 16:20 | PT-OP ANOTE ---
Per telephone conversation, pt was notified he was last seen 10/28/19 and that his plan of care has ; therefore he was to be discharged due to lack of attendance. The pt states he still has neck/head pain that wakes him up at night and that he still requires medications to control the pain. He states he still have tingling sensation and sometimes numbness. He reports he is falling down more again when he trips and is not able to react quick enough to catch himself with his arms. He had a period when he was not falling between mid October and end of Dec. Pt was advised to speak to his physician regarding the increased falls and to request another referral for physical therapy to address his neck/head pain and his falling. Pt agreeable and will seek another referral for therapy.
--- NOTE | 2019-12-31 16:34 | PT.OPDS ---
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) Visit Care Team Role Provider Type Joel Gonzalez MD Family Provider Non-Staff Primary Care Provider Specialty: Family Practice Address: [address] [place] [address], [id number] Email: Rios Stein PA-C Attending Provider Non-Staff Referring Provider Specialty: Medical Address: [address] [place] [address], [phone] Email: Visit Number Visit Number 6 Discharge Summary PT-OP-B Current Condition Start: 10/03/19 19:55 Freq: Status: Active Protocol: Document 10/07/19 14:32 LRN (Rec: 10/07/19 16:26 LRN [id number]) Current Condition History of Current Condition Onset Date 3 weeks ago Current Complaints Tingling into R shoulder/arm, mostly in hand, intermittent, pain R head/neck History of Current Condition Urgent care 3 weeks, due to increasing pain in R neck/head and pt was concerned something was wrong. A few days afterwards went again to urgent care due to ongoing R shoulder/neck pain and got new medications that proved to be helpful. States he uses 2 codene or Meloxicam daily. States X- rays taken in [place] recently showed cushion has worn out and C3-C4 were grinding on each other; therefore referred to physical therapy. He states Dr. Gonzalez insisted on PT before doing anything else. Prior Treatments and Tests X-rays Urgent care [facility]. Pt states it showed grinding of C3-C4. Has used ice to neck with moderate results. Developmental History Developmental History 10-15 yrs ago had neck surgery in [place], because had trouble using the R hand. 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 Treatment Goals Patient/Caregiver Goals Has not had good results with PT in the past. Pt goal is for PT to find a way to alleviate the pain enough to get off medications, improve sleeping, return to heavy yardwork with pain only once in awhile (mowing lawn, cutting and hauling brush & cutting wood), vacuum without pain. 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 Baseline Function- Other Able to sleep with use of SEROquel (100 mg QUEtiapine) Current Functional Impairments (Reported) Functional Limitations- ADL's Difficulty sitting and concentrating. Rolling in bed causes electrical shocks down R arm and neck without medications to manage the pain. Functional Limitations- Mobility/Gait Pt reports serious balance problem. Functional Limitations- Recreation/ Not able to do yardwork. 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 States he did do self TrP treatements. States he stepped on a hornets nest 5 days ago and moved faster than he thought he could. PT-OP-H Neuro Start: 10/03/19 19:55 Freq: Status: Active Protocol: Document 10/07/19 14:32 LRN (Rec: 10/07/19 16:26 LRN [id number]) Sensation Evaluation Comments Summary Comments Sensation is normal to soft touch except in the R hand index finger of entirety. Pt had not complaints of tingling pain today on initial evaluation. Deep Tendon Reflex & Clonus Assessment Deep Tendon Reflex Bilateral Tricep Deep Tendon Reflex 1+ Diminished Bilateral Brachioradialis Deep Tendon Reflex 1+ Diminished Bilateral Bicep Deep Tendon Reflex 1+ Diminished PT-OP-J Posture/Palpation/Skin Start: 10/03/19 19:55 Freq: Status: Active Protocol: Document 10/07/19 14:32 LRN (Rec: 10/07/19 16:26 LRN [id number]) Posture Evaluation Position Standing Evaluation View All positions Head/C-Spine Posture Rotated Left,Side Bent Left, Forward Head T-Spine Posture Flattened L-Spine Posture Flattened Shoulder Posture (R) Elevated Pelvis Posture (L) Rotated Posterior,(R) Rotated Posterior PT-OP-K Range of Motion Start: 10/03/19 19:55 Freq: Status: Active Protocol: Document 10/22/19 14:49 LRN (Rec: 10/22/19 15:59 LRN [id number]) Shoulder Goniometric Range of Motion Shoulder Right Active Testing Position Supine Flexion 165 Extension 50 External Rotation at 90 degrees 90 Abduction Internal Rotation 60 Left Active Testing Position Supine Flexion 165 Extension 50 External Rotation at 90 degrees 90 Abduction Internal Rotation 70 PT-OP-L Special Tests Start: 10/03/19 19:55 Freq: Status: Active Protocol: Document 10/25/19 08:59 LRN (Rec: 10/25/19 09:48 LRN [id number]) Special Tests Cervical Spine Special Tests Traction Test Results negative Comments No change in neck or R shoulder pain with traction PT-OP-M Strength Start: 10/03/19 19:55 Freq: Status: Active Protocol: Document 10/07/19 14:32 LRN (Rec: 10/07/19 16:26 LRN [id number]) Cervical Spine Strength Cervical Spine Manual Muscle Testing Testing Position Sitting Reason Not Measured WFL Comments No increase in pain. Shoulder Strength Shoulder Manual Muscle Testing Right Reason Not Measured WFL Comments No R shoulder/neck pain complaints. Left Reason Not Measured WFL PT-OP-T Assessment and Plan Start: 10/03/19 19:55 Freq: Status: Active Protocol: Document 12/31/19 16:28 LRN (Rec: 12/31/19 16:34 LRN [id number]) Physical Therapy Assessment Goals Pain Impairment Pain rated 3-8/10 in R neck/ head limiting function Short Term Goal (STG) Decrease pain with pt able to tolerate rolling in bed without interrupting sleep. (10/15/19:). (10/25/19: Pt does not wake at nights but uses pain med for past month & for years PTSD med, before bed. He has usual pain of 6/10 during the day). STG Duration 11/04/19 (10/25/19: MET GOAL) Printing Specialist Goal (LTG) Decrease pain to a tolerable level such that the pt will not need medications to manage his R neck/shoulder pain pain . LTG Duration 12/06/19 QuickDASH Impairment QuickDASH = 36.36 (29-39% impaired, score 20-39) Short Term Goal (STG) Pt will be able to vacuum without an increase in sharp R head/neck pain. Residential Goal (LTG) Improve LE function per LEFS score of 19 or less (1-19% impairment). LTG Duration 12/06/19 NDI Impairment Decreased neck function per NDI 20 (40-59% impaired, score 20-29) Short Term Goal (STG) Decrease NDI to 15 or less. STG Duration 11/04/19 Residential Goal (LTG) Decrease NDI to 9 or less. LTG Duration 12/06/19 HEP Impairment Pt lacks appropriate self longterm exercises. Residential Goal (LTG) Pt will be independent with a self care HEP., LTG Duration 12/06/19 (10/25/19: Progressing) Assessment Summary Assessment Pt received 5 physical therapy treatments with his last appt on 10/28/19, and failed to return for further therapy. He did not complete his plan of care. He reported per telephone that he had a period of time from October to Dec that he did not suffer falls, but he is now falling again. He did get some pain relief with therapy, but now he states his pain is back to the same. It appears the pt did benefited from physical therapy in the past and would probably benefit from a new program of rehabilitation for his neck/head and problem with falling. The was agreeable to talking to his physician for another session of rehabilitation. The pt was unavailable for final assessments. Physical Therapy Plan Discharge Physical Therapy Discharge Reasons No Longer Attending PT Discharge Comments Pt is being discharged from therapy due to lack of attendance. His plan of care has now ; therefore he will need a new referral to return to therapy for rehabilitation. Thank you for your referral.
== END 2020-01-03 08:52 ==
LOC: PHYS 12:45
PROVIDERS: Family Provider Family Medicine; PCP Family Medicine; Referring Provider Physician Assistant Medical; Visit Provider Physician Assistant Medical
DX: M47.812 Spondylosis without myelopathy or radiculopathy, cervical region (principal)
CPT/HCPCS: 97110; 97140; 97162; 97535